=== PATIENT | male | born 1930 | race Caucasian/White ===

== ENCOUNTER 2017-06-16 08:30 | Outpatient (RCR) | payer MEDICARE, BC ==
[~2017-06-16] VITALS: Ht 162.6 cm; Wt 74.4 kg
[2017-06-16] MEDS ORDERED: NS 500ML ONE (08:31)
[2017-06-16] MEDS ORDERED: Midazolam 2mg/2ml Inj ONE (08:31)
[2017-06-16] MEDS ORDERED: Methohexital Sodium Syr 100mg/10ml IVP ONE (08:31)
[2017-06-16] MEDS ORDERED: Succinylcholine 20mg/ml 10ml vial ONE (08:31)
[2017-06-16 10:04] VITALS: BP 155/62
[2017-06-16] MEDS ORDERED: Sodium Chloride 500ML 500 ML IV ONE (10:17)
[2017-06-16 10:20] VITALS: BP 176/44
[2017-06-16 10:25] VITALS: BP 168/47
[2017-06-16 10:30] VITALS: BP 155/44
[2017-06-16 10:35] VITALS: BP 157/56
[2017-06-16 13:05] VITALS: BP 155/62
[2017-06-18] MEDS ORDERED: NS 500ML ONE (06:00)
[2017-06-18] MEDS ORDERED: Methohexital Sodium Syr 100mg/10ml IVP ONE (06:00)
[2017-06-18] MEDS ORDERED: Midazolam 2mg/2ml Inj ONE (06:00)
[2017-06-18] MEDS ORDERED: Succinylcholine 20mg/ml 10ml vial ONE (06:00)
[2017-06-18 08:49] VITALS: BP 150/69
[2017-06-18 09:05] VITALS: BP 189/43
[2017-06-18] MEDS ORDERED: Sodium Chloride 500ML 500 ML IV ONE (09:05)
[2017-06-18 09:10] VITALS: BP 163/45
[2017-06-18 09:15] VITALS: BP 163/40
[2017-06-18 09:20] VITALS: BP 146/39
[2017-06-21] MEDS ORDERED: Succinylcholine 20mg/ml 10ml vial ONE (07:00)
[2017-06-21] MEDS ORDERED: Midazolam 2mg/2ml Inj ONE (07:00)
[2017-06-21] MEDS ORDERED: Methohexital Sodium Syr 100mg/10ml IVP ONE (07:00)
[2017-06-21] MEDS ORDERED: NS 500ML ONE (07:00)
[2017-06-21] MEDS ORDERED: Atropine Sulfate 0.4mg/ml inj IVP PRN (12:04)
[2017-06-21] MEDS ORDERED: Sodium Chloride 500ML 500 ML IV ONE (12:04)
[2017-06-21 12:05] VITALS: BP 184/46
[2017-06-21 12:10] VITALS: BP 145/47
[2017-06-21 12:15] VITALS: BP 158/47
[2017-06-21 12:20] VITALS: BP 157/48
[2017-06-21 12:25] VITALS: BP 157/46
[2017-06-21 12:30] VITALS: BP 158/48
[2017-06-23] MEDS ORDERED: Succinylcholine 20mg/ml 10ml vial ONE (07:00)
[2017-06-23] MEDS ORDERED: Midazolam 2mg/2ml Inj ONE (07:00)
[2017-06-23] MEDS ORDERED: Methohexital Sodium Syr 100mg/10ml IVP ONE (07:00)
[2017-06-23] MEDS ORDERED: NS 500ML ONE (07:00)
[2017-06-23 11:47] VITALS: BP 161/60
[2017-06-23] MEDS ORDERED: Atropine Sulfate 0.4mg/ml inj IVP PRN (12:08)
[2017-06-23] MEDS ORDERED: Sodium Chloride 500ML 500 ML IV ONE (12:08)
[2017-06-23 12:10] VITALS: BP 163/40
[2017-06-23 12:15] VITALS: BP 146/45
[2017-06-23 12:20] VITALS: BP 137/44
[2017-06-23 12:25] VITALS: BP 122/44
[2017-06-25] MEDS ORDERED: Midazolam 2mg/2ml Inj ONE (07:00)
[2017-06-25] MEDS ORDERED: NS 500ML ONE (07:00)
[2017-06-25] MEDS ORDERED: Succinylcholine 20mg/ml 10ml vial ONE (07:00)
[2017-06-25] MEDS ORDERED: Methohexital Sodium Syr 100mg/10ml IVP ONE (07:00)
[2017-06-25 08:35] VITALS: BP 182/70
[2017-06-25] MEDS ORDERED: Sodium Chloride 500ML 500 ML IV ONE (08:53)
[2017-06-25 08:55] VITALS: BP 180/44
[2017-06-25 09:00] VITALS: BP 157/48
[2017-06-25 09:05] VITALS: BP 158/46
[2017-06-25 09:10] VITALS: BP 148/50
[2017-06-28] MEDS ORDERED: NS 500ML ONE (07:00)
[2017-06-28] MEDS ORDERED: Methohexital Sodium Syr 100mg/10ml IVP ONE (07:00)
[2017-06-28] MEDS ORDERED: Midazolam 2mg/2ml Inj ONE (07:00)
[2017-06-28] MEDS ORDERED: Succinylcholine 20mg/ml 10ml vial ONE (07:00)
[2017-06-28 10:45] VITALS: BP 149/74
[2017-06-28] MEDS ORDERED: Sodium Chloride 500ML 500 ML IV ONE (11:03)
[2017-06-28 11:05] VITALS: BP 177/38
[2017-06-28 11:10] VITALS: BP 181/56
[2017-06-28 11:15] VITALS: BP 180/49
[2017-06-28 11:20] VITALS: BP 156/56
[2017-06-28 11:25] VITALS: BP 156/56
[2017-06-30] MEDS ORDERED: Midazolam 2mg/2ml Inj ONE (08:00)
[2017-06-30] MEDS ORDERED: Succinylcholine 20mg/ml 10ml vial ONE (08:00)
[2017-06-30] MEDS ORDERED: Methohexital Sodium Syr 100mg/10ml IVP ONE (08:00)
[2017-06-30] MEDS ORDERED: NS 500ML ONE (08:00)
[2017-06-30 10:35] VITALS: BP 149/57
[2017-06-30] MEDS ORDERED: Atropine Sulfate 0.4mg/ml inj IVP PRN (10:50)
[2017-06-30] MEDS ORDERED: Sodium Chloride 500ML 500 ML IV ONE (10:50)
[2017-06-30 10:58] VITALS: BP 178/31
[2017-06-30 11:03] VITALS: BP 169/54
[2017-06-30 11:08] VITALS: BP 168/70
[2017-06-30 11:13] VITALS: BP_SYST 162; BP_SYST 168; BP_DIAS 44; BP_DIAS 56
[2017-07-02] MEDS ORDERED: Methohexital Sodium Syr 100mg/10ml IVP ONE (08:00)
[2017-07-02] MEDS ORDERED: Midazolam 2mg/2ml Inj ONE (08:00)
[2017-07-02] MEDS ORDERED: NS 500ML ONE (08:00)
[2017-07-02] MEDS ORDERED: Succinylcholine 20mg/ml 10ml vial ONE (08:00)
[2017-07-02 09:47] VITALS: BP 160/60
[2017-07-02 10:00] VITALS: BP 173/70
[2017-07-02] MEDS ORDERED: Sodium Chloride 500ML 500 ML IV ONE (10:00)
[2017-07-02 10:05] VITALS: BP 183/56
[2017-07-02 10:10] VITALS: BP 183/56
[2017-07-02 10:15] VITALS: BP 136/78
[2017-07-02 10:20] VITALS: BP 104/28
== END 2017-07-08 | disposition home or self-care (01) ==
LOC: ECT 08:30
DX: F31.4 Bipolar disorder, current episode depressed, severe, without psychotic features (principal); Z95.1 Presence of aortocoronary bypass graft; I10 Essential (primary) hypertension; E78.00 Pure hypercholesterolemia, unspecified; I25.10 Atherosclerotic heart disease of native coronary artery without angina pectoris; G47.33 Obstructive sleep apnea (adult) (pediatric); Z95.2 Presence of prosthetic heart valve
CPT/HCPCS: 90870; J0330; J2250; J7040

== ENCOUNTER 2017-07-09 08:23 | Outpatient (RCR) | payer MEDICARE, BC ==
[~2017-07-09] VITALS: Ht 160 cm; Wt 74.4 kg
[2017-07-12] MEDS ORDERED: Succinylcholine 20mg/ml 10ml vial ONE (07:00)
[2017-07-12] MEDS ORDERED: Midazolam 2mg/2ml Inj ONE (07:00)
[2017-07-12] MEDS ORDERED: Methohexital Sodium Syr 100mg/10ml IVP ONE (07:00)
[2017-07-12] MEDS ORDERED: NS 500ML ONE (07:00)
[2017-07-12 09:22] VITALS: BP 163/67
[2017-07-12] MEDS ORDERED: Sodium Chloride 500ML 500 ML IV ONE (09:36)
[2017-07-12 09:40] VITALS: BP 183/51
[2017-07-12 09:45] VITALS: BP 175/60
[2017-07-12 09:50] VITALS: BP 162/50
[2017-07-12 09:55] VITALS: BP 160/48
[2017-07-19] MEDS ORDERED: Succinylcholine 20mg/ml 10ml vial ONE (06:30)
[2017-07-19] MEDS ORDERED: Midazolam 2mg/2ml Inj ONE (06:30)
[2017-07-19] MEDS ORDERED: Methohexital Sodium Syr 100mg/10ml IVP ONE (06:30)
[2017-07-19] MEDS ORDERED: NS 500ML ONE (06:30)
[2017-07-19 09:34] VITALS: BP 163/60
[2017-07-19] MEDS ORDERED: Atropine Sulfate 0.4mg/ml inj IVP PRN (09:53)
[2017-07-19] MEDS ORDERED: Sodium Chloride 500ML 500 ML IV ONE (09:53)
[2017-07-19 09:55] VITALS: BP 176/63
[2017-07-19 10:00] VITALS: BP 180/57
[2017-07-19 10:05] VITALS: BP 188/65
[2017-07-19 10:10] VITALS: BP 192/58
[2017-07-19 10:15] VITALS: BP 171/63
[2017-08-02] MEDS ORDERED: Methohexital Sodium Syr 100mg/10ml IVP ONE (07:00)
[2017-08-02] MEDS ORDERED: Midazolam 2mg/2ml Inj ONE (07:00)
[2017-08-02] MEDS ORDERED: NS 500ML ONE (07:00)
[2017-08-02] MEDS ORDERED: Succinylcholine 20mg/ml 10ml vial ONE (07:00)
[2017-08-02 08:35] VITALS: BP 168/64
[2017-08-02] MEDS ORDERED: Sodium Chloride 500ML 500 ML IV ONE (08:49)
[2017-08-02 08:50] VITALS: BP 171/62
[2017-08-02 08:55] VITALS: BP 185/45
[2017-08-02 09:00] VITALS: BP 186/63
[2017-08-02 09:05] VITALS: BP 187/50
== END 2017-08-07 | disposition home or self-care (01) ==
LOC: ECT 08:23
DX: F31.4 Bipolar disorder, current episode depressed, severe, without psychotic features (principal)
CPT/HCPCS: 90870; J0330; J2250; J7040

== ENCOUNTER 2017-08-23 05:58 | Outpatient (RCR) | payer MEDICARE, BC ==
[~2017-08-23] VITALS: Ht 33 cm; Wt 0.5 kg
[2017-08-23] MEDS ORDERED: Midazolam 2mg/2ml Inj ONE (05:59)
[2017-08-23] MEDS ORDERED: Succinylcholine 20mg/ml 10ml vial ONE (05:59)
[2017-08-23] MEDS ORDERED: NS 500ML ONE (05:59)
[2017-08-23] MEDS ORDERED: Methohexital Sodium Syr 100mg/10ml IVP ONE (05:59)
[2017-08-23 08:16] VITALS: BP 175/57
[2017-08-23] MEDS ORDERED: Sodium Chloride 500ML 500 ML IV ONE (08:27)
[2017-08-23 08:30] VITALS: BP 167/43
[2017-08-23 08:35] VITALS: BP 170/40
[2017-08-23 08:40] VITALS: BP 160/40
[2017-08-23 08:45] VITALS: BP 169/41
== END 2017-09-07 | disposition home or self-care (01) ==
LOC: ECT 05:58
DX: F31.4 Bipolar disorder, current episode depressed, severe, without psychotic features (principal)
CPT/HCPCS: 90870; J0330; J2250; J7040

== ENCOUNTER 2017-09-20 05:46 | Outpatient (RCR) | payer MEDICARE, BC ==
[~2017-09-20] VITALS: Ht 30.5 cm; Wt 0.5 kg
[2017-09-20] MEDS ORDERED: Succinylcholine 20mg/ml 10ml vial ONE (05:47)
[2017-09-20] MEDS ORDERED: Midazolam 2mg/2ml Inj ONE (05:47)
[2017-09-20] MEDS ORDERED: Methohexital Sodium Syr 100mg/10ml IVP ONE (05:47)
[2017-09-20] MEDS ORDERED: NS 500ML ONE (05:47)
[2017-09-20 08:32] VITALS: BP 167/59
[2017-09-20] MEDS ORDERED: Sodium Chloride 500ML 500 ML IV ONE (08:41)
[2017-09-20 08:45] VITALS: BP 206/51
[2017-09-20 08:50] VITALS: BP 165/45
[2017-09-20 08:55] VITALS: BP 169/45
[2017-09-20 09:00] VITALS: BP 164/81
== END 2017-10-08 | disposition home or self-care (01) ==
LOC: ECT 05:46
DX: F31.4 Bipolar disorder, current episode depressed, severe, without psychotic features (principal)
CPT/HCPCS: 90870; J0330; J2250; J7040

== ENCOUNTER 2017-10-20 04:52 | Outpatient (RCR) | payer MEDICARE, BC ==
[~2017-10-20] VITALS: Ht 30.5 cm; Wt 0.5 kg
[2017-10-20] MEDS ORDERED: Methohexital Sodium Syr 100mg/10ml IVP ONE (04:53)
[2017-10-20] MEDS ORDERED: Succinylcholine 20mg/ml 10ml vial ONE (04:53)
[2017-10-20] MEDS ORDERED: NS 500ML ONE (04:53)
[2017-10-20] MEDS ORDERED: Midazolam 2mg/2ml Inj ONE (04:53)
[2017-10-20 08:49] VITALS: BP 186/62
[2017-10-20] MEDS ORDERED: Sodium Chloride 500ML 500 ML IV ONE (09:02)
[2017-10-20 09:05] VITALS: BP 196/40
[2017-10-20 09:10] VITALS: BP 178/49
[2017-10-20 09:15] VITALS: BP 173/48
[2017-10-20 09:20] VITALS: BP 160/47
== END 2017-11-07 | disposition home or self-care (01) ==
LOC: ECT 04:52
DX: F31.4 Bipolar disorder, current episode depressed, severe, without psychotic features (principal)
CPT/HCPCS: 90870; J0330; J2250; J7040

== ENCOUNTER 2017-11-17 06:08 | Outpatient (RCR) | payer MEDICARE, BC ==
[~2017-11-17] VITALS: Ht 30.5 cm; Wt 0.5 kg
[2017-11-17] MEDS ORDERED: Methohexital Sodium Syr 100mg/10ml IVP ONE (06:09)
[2017-11-17] MEDS ORDERED: Succinylcholine 20mg/ml 10ml vial ONE (06:09)
[2017-11-17] MEDS ORDERED: Midazolam 2mg/2ml Inj ONE (06:09)
[2017-11-17] MEDS ORDERED: NS 500ML ONE (06:09)
[2017-11-17 09:02] VITALS: BP 183/66
[2017-11-17 09:20] VITALS: BP 195/51
[2017-11-17] MEDS ORDERED: Sodium Chloride 500ML 500 ML IV ONE (09:20)
[2017-11-17 09:25] VITALS: BP 178/54
[2017-11-17 09:30] VITALS: BP 170/47
== END 2017-12-08 | disposition home or self-care (01) ==
LOC: ECT 06:08
DX: F31.4 Bipolar disorder, current episode depressed, severe, without psychotic features (principal)
CPT/HCPCS: 90870; J0330; J2250; J7040

== ENCOUNTER 2017-12-15 04:57 | Outpatient (RCR) | payer MEDICARE, BC ==
[~2017-12-15] VITALS: Ht 160 cm; Wt 73.9 kg
[2017-12-15] MEDS ORDERED: NS 500ML ONE (04:58)
[2017-12-15] MEDS ORDERED: Midazolam 2mg/2ml Inj ONE (04:58)
[2017-12-15] MEDS ORDERED: Succinylcholine 20mg/ml 10ml vial ONE (04:58)
[2017-12-15] MEDS ORDERED: Methohexital Sodium Syr 100mg/10ml IVP ONE (04:58)
[2017-12-15 08:44] VITALS: BP 175/62
[2017-12-15] MEDS ORDERED: Sodium Chloride 500ML 500 ML IV ONE (08:55)
[2017-12-15 09:00] VITALS: BP 172/44
[2017-12-15 09:05] VITALS: BP 172/54
[2017-12-15 09:10] VITALS: BP 183/41
[2017-12-15 09:15] VITALS: BP 168/48
== END 2018-01-07 | disposition home or self-care (01) ==
LOC: ECT 04:57
DX: F31.4 Bipolar disorder, current episode depressed, severe, without psychotic features (principal)
CPT/HCPCS: 90870; J0330; J2250; J7040

== ENCOUNTER 2018-01-12 04:43 | Outpatient (RCR) | payer MEDICARE, BC ==
[~2018-01-12] VITALS: Ht 160 cm; Wt 74.4 kg
[2018-01-12] MEDS ORDERED: Midazolam 2mg/2ml Inj ONE (04:44)
[2018-01-12] MEDS ORDERED: NS 500ML ONE (04:44)
[2018-01-12] MEDS ORDERED: Methohexital Sodium Syr 100mg/10ml IVP ONE (04:44)
[2018-01-12] MEDS ORDERED: Succinylcholine 20mg/ml 10ml vial ONE (04:44)
[2018-01-12 08:22] VITALS: BP 167/58
[2018-01-12 08:45] VITALS: BP_SYST 172; BP_SYST 181; BP_DIAS 49; BP_DIAS 52
[2018-01-12 08:50] VITALS: BP 164/59
[2018-01-12 08:55] VITALS: BP 165/43
[2018-01-12] MEDS ORDERED: Sodium Chloride 500ML 500 ML IV ONE (14:45)
[2018-01-28] MEDS ORDERED: Midazolam 2mg/2ml Inj ONE (06:00)
[2018-01-28] MEDS ORDERED: NS 500ML ONE (06:00)
[2018-01-28] MEDS ORDERED: Succinylcholine 20mg/ml 10ml vial ONE (06:00)
[2018-01-28] MEDS ORDERED: Methohexital Sodium Syr 100mg/10ml IVP ONE (06:00)
[2018-01-28 09:23] VITALS: BP 180/72
[2018-01-28] MEDS ORDERED: Sodium Chloride 500ML 500 ML IV ONE (09:34)
[2018-01-28 09:35] VITALS: BP 172/39
[2018-01-28 09:40] VITALS: BP 169/63
[2018-01-28 09:45] VITALS: BP 183/52
[2018-01-28 09:50] VITALS: BP 191/58
[2018-01-31] MEDS ORDERED: Succinylcholine 20mg/ml 10ml vial ONE (06:00)
[2018-01-31] MEDS ORDERED: Midazolam 2mg/2ml Inj ONE (06:00)
[2018-01-31] MEDS ORDERED: NS 500ML ONE (06:00)
[2018-01-31] MEDS ORDERED: Methohexital Sodium Syr 100mg/10ml IVP ONE (06:00)
[2018-01-31 07:32] VITALS: BP 167/57
[2018-01-31] MEDS ORDERED: Sodium Chloride 500ML 500 ML IV ONE (07:46)
[2018-01-31 07:50] VITALS: BP 178/57
[2018-01-31 07:55] VITALS: BP 174/55
[2018-01-31 08:00] VITALS: BP 160/55
[2018-01-31 08:05] VITALS: BP 155/43
[2018-02-04] MEDS ORDERED: Midazolam 2mg/2ml Inj ONE (06:00)
[2018-02-04] MEDS ORDERED: Methohexital Sodium Syr 100mg/10ml IVP ONE (06:00)
[2018-02-04] MEDS ORDERED: NS 500ML ONE (06:00)
[2018-02-04] MEDS ORDERED: Succinylcholine 20mg/ml 10ml vial ONE (06:00)
[2018-02-04 07:59] VITALS: BP 189/80
[2018-02-04] MEDS ORDERED: Sodium Chloride 500ML 500 ML IV ONE (08:12)
[2018-02-04 08:15] VITALS: BP 218/60
[2018-02-04 08:20] VITALS: BP 184/55
[2018-02-04 08:25] VITALS: BP 171/84
[2018-02-04 08:30] VITALS: BP 186/34
== END 2018-02-07 | disposition home or self-care (01) ==
LOC: ECT 04:43
DX: F31.4 Bipolar disorder, current episode depressed, severe, without psychotic features (principal)
CPT/HCPCS: 90870; J0330; J2250; J7040

== ENCOUNTER 2018-02-09 05:44 | Outpatient (RCR) | payer MEDICARE, BC ==
[~2018-02-09] VITALS: Ht 160 cm; Wt 74.4 kg
[2018-02-09] MEDS ORDERED: Methohexital Sodium Syr 100mg/10ml IVP ONE ×2 (05:45)
[2018-02-09] MEDS ORDERED: Succinylcholine 20mg/ml 10ml vial ONE ×2 (05:45)
[2018-02-09] MEDS ORDERED: NS 500ML ONE ×2 (05:45)
[2018-02-09] MEDS ORDERED: Midazolam 2mg/2ml Inj ONE ×2 (05:45)
[2018-02-09 07:49] VITALS: BP 197/85
[2018-02-09 08:00] VITALS: BP 194/60
[2018-02-09 08:05] VITALS: BP 165/70
[2018-02-09 08:10] VITALS: BP 201/58
[2018-02-09 08:15] VITALS: BP 197/59
[2018-02-18] MEDS ORDERED: Midazolam 2mg/2ml Inj ONE (08:00)
[2018-02-18] MEDS ORDERED: Succinylcholine 20mg/ml 10ml vial ONE (08:00)
[2018-02-18] MEDS ORDERED: NS 500ML ONE (08:00)
[2018-02-18] MEDS ORDERED: Methohexital Sodium Syr 100mg/10ml IVP ONE (08:00)
[2018-02-18 10:04] VITALS: BP 181/61
[2018-02-18 10:20] VITALS: BP 170/70
[2018-02-18 10:25] VITALS: BP 183/61
[2018-02-18 10:30] VITALS: BP 190/60
[2018-02-18 10:35] VITALS: BP 172/52
[2018-02-28] MEDS ORDERED: NS 500ML ONE (08:00)
[2018-02-28] MEDS ORDERED: Succinylcholine 20mg/ml 10ml vial ONE (08:00)
[2018-02-28] MEDS ORDERED: Midazolam 2mg/2ml Inj ONE (08:00)
[2018-02-28] MEDS ORDERED: Methohexital Sodium Syr 100mg/10ml IVP ONE (08:00)
[2018-02-28 08:48] VITALS: BP 153/61
[2018-02-28 09:05] VITALS: BP 185/61
[2018-02-28 09:10] VITALS: BP 166/61
[2018-02-28 09:15] VITALS: BP 166/62
[2018-02-28 09:20] VITALS: BP 172/55
[2018-03-04 08:40] VITALS: BP 164/67
[2018-03-04 08:50] VITALS: BP 215/66
[2018-03-04 08:55] VITALS: BP 169/68
[2018-03-04 09:00] VITALS: BP 162/11
[2018-03-04 09:05] VITALS: BP 173/56
[2018-03-09 08:39] VITALS: BP 159/62
[2018-03-09 08:55] VITALS: BP 195/51
[2018-03-09 09:00] VITALS: BP 183/58
[2018-03-09 09:05] VITALS: BP 180/60
[2018-03-09 09:10] VITALS: BP 174/57
[2018-03-09] MEDS ORDERED: Succinylcholine 20mg/ml 10ml vial ONE (10:00)
[2018-03-09] MEDS ORDERED: Midazolam 2mg/2ml Inj ONE (10:00)
[2018-03-09] MEDS ORDERED: NS 500ML ONE (10:00)
[2018-03-09] MEDS ORDERED: Methohexital Sodium Syr 100mg/10ml IVP ONE (10:00)
== END 2018-03-10 | disposition home or self-care (01) ==
LOC: ECT 05:44
DX: F31.4 Bipolar disorder, current episode depressed, severe, without psychotic features (principal); Z95.1 Presence of aortocoronary bypass graft; Z95.2 Presence of prosthetic heart valve; I10 Essential (primary) hypertension; E78.00 Pure hypercholesterolemia, unspecified; I25.10 Atherosclerotic heart disease of native coronary artery without angina pectoris; H54.8 Legal blindness, as defined in USA; G47.33 Obstructive sleep apnea (adult) (pediatric)
CPT/HCPCS: 90870; J0330; J2250; J7040

== ENCOUNTER 2018-03-21 05:06 | Outpatient (RCR) | payer MEDICARE, BC ==
[~2018-03-21] VITALS: Ht 160 cm; Wt 73.9 kg
[2018-03-21] MEDS ORDERED: Midazolam 2mg/2ml Inj ONE (05:07)
[2018-03-21] MEDS ORDERED: Methohexital Sodium Syr 100mg/10ml IVP ONE (05:07)
[2018-03-21] MEDS ORDERED: Succinylcholine 20mg/ml 10ml vial ONE (05:07)
[2018-03-21] MEDS ORDERED: NS 500ML ONE (05:07)
[2018-03-21 09:31] VITALS: BP 150/69
[2018-03-21 09:50] VITALS: BP 175/68
[2018-03-21 09:55] VITALS: BP 161/63
[2018-03-21 10:00] VITALS: BP 154/60
[2018-03-21 10:05] VITALS: BP 170/61
[2018-04-04] MEDS ORDERED: Midazolam 2mg/2ml Inj ONE (07:00)
[2018-04-04] MEDS ORDERED: Methohexital Sodium Syr 100mg/10ml IVP ONE (07:00)
[2018-04-04] MEDS ORDERED: Succinylcholine 20mg/ml 10ml vial ONE (07:00)
[2018-04-04] MEDS ORDERED: NS 500ML ONE (07:00)
[2018-04-04 09:12] VITALS: BP 190/66
[2018-04-04 09:30] VITALS: BP 195/62
[2018-04-04 09:35] VITALS: BP 182/57
[2018-04-04 09:40] VITALS: BP 177/56
[2018-04-04 09:45] VITALS: BP 169/50
== END 2018-04-07 | disposition home or self-care (01) ==
LOC: ECT 05:06
DX: F31.4 Bipolar disorder, current episode depressed, severe, without psychotic features (principal)
CPT/HCPCS: 90870; J0330; J2250; J7040

== ENCOUNTER 2018-04-25 05:56 | Outpatient (RCR) | payer MEDICARE, BC ==
[~2018-04-25] VITALS: Ht 160 cm; Wt 73.9 kg
[2018-04-25] MEDS ORDERED: NS 500ML ONE (05:57)
[2018-04-25] MEDS ORDERED: Methohexital Sodium Syr 100mg/10ml IVP ONE (05:57)
[2018-04-25] MEDS ORDERED: Succinylcholine 20mg/ml 10ml vial ONE (05:57)
[2018-04-25] MEDS ORDERED: Midazolam 2mg/2ml Inj ONE (05:57)
[2018-04-25 09:30] VITALS: BP 157/64
[2018-04-25 09:40] VITALS: BP 177/53
[2018-04-25 09:45] VITALS: BP 181/48
[2018-04-25 09:50] VITALS: BP 173/50
[2018-04-25 09:55] VITALS: BP 168/62
[2018-04-25 10:00] VITALS: BP 177/46
== END 2018-05-08 | disposition home or self-care (01) ==
LOC: ECT 05:56
DX: F31.4 Bipolar disorder, current episode depressed, severe, without psychotic features (principal)
CPT/HCPCS: 90870; J0330; J2250; J7040

== ENCOUNTER 2018-05-18 05:09 | Outpatient (RCR) | payer MEDICARE, BC ==
[~2018-05-18] VITALS: Ht 160 cm; Wt 73.9 kg
[2018-05-18] MEDS ORDERED: NS 500ML ONE (05:10)
[2018-05-18] MEDS ORDERED: Midazolam 2mg/2ml Inj ONE (05:10)
[2018-05-18] MEDS ORDERED: Methohexital Sodium Syr 100mg/10ml IVP ONE (05:10)
[2018-05-18] MEDS ORDERED: Succinylcholine 20mg/ml 10ml vial ONE (05:10)
[2018-05-18 09:01] VITALS: BP 180/63
[2018-05-18 09:20] VITALS: BP 181/49
[2018-05-18 09:25] VITALS: BP 184/57
[2018-05-18 09:30] VITALS: BP 186/36
[2018-05-18 09:35] VITALS: BP 189/44
[2018-05-25] MEDS ORDERED: Midazolam 2mg/2ml Inj ONE (07:00)
[2018-05-25] MEDS ORDERED: Methohexital Sodium Syr 100mg/10ml IVP ONE (07:00)
[2018-05-25] MEDS ORDERED: Succinylcholine 20mg/ml 10ml vial ONE (07:00)
[2018-05-25] MEDS ORDERED: NS 500ML ONE (07:00)
[2018-05-25 08:54] VITALS: BP 149/63
[2018-05-25 09:10] VITALS: BP 185/57
[2018-05-25 09:15] VITALS: BP 184/39
[2018-05-25 09:20] VITALS: BP 190/23
[2018-05-25 09:25] VITALS: BP 195/41
[2018-06-01] MEDS ORDERED: Midazolam 2mg/2ml Inj ONE (09:00)
[2018-06-01] MEDS ORDERED: NS 500ML ONE (09:00)
[2018-06-01] MEDS ORDERED: Succinylcholine 20mg/ml 10ml vial ONE (09:00)
[2018-06-01] MEDS ORDERED: Methohexital Sodium Syr 100mg/10ml IVP ONE (09:00)
[2018-06-01 10:21] VITALS: BP 161/72
[2018-06-01 10:35] VITALS: BP 196/56
[2018-06-01 10:40] VITALS: BP 163/49
[2018-06-01 10:45] VITALS: BP 181/44
[2018-06-01 10:50] VITALS: BP 165/49
[2018-06-06] MEDS ORDERED: Methohexital Sodium Syr 100mg/10ml IVP ONE (08:00)
[2018-06-06] MEDS ORDERED: Succinylcholine 20mg/ml 10ml vial ONE (08:00)
[2018-06-06] MEDS ORDERED: NS 500ML ONE (08:00)
[2018-06-06] MEDS ORDERED: Midazolam 2mg/2ml Inj ONE (08:00)
[2018-06-06 09:15] VITALS: BP 170/69
[2018-06-06 09:30] VITALS: BP 189/45
[2018-06-06 09:35] VITALS: BP 192/55
[2018-06-06 09:40] VITALS: BP 183/74
[2018-06-06 09:45] VITALS: BP 182/50
== END 2018-06-07 | disposition home or self-care (01) ==
LOC: ECT 05:09
DX: F31.4 Bipolar disorder, current episode depressed, severe, without psychotic features (principal)
CPT/HCPCS: 90870; J0330; J2250; J7040

== ENCOUNTER 2018-06-10 04:36 | Outpatient (RCR) | payer MEDICARE, BC ==
[~2018-06-10] VITALS: Ht 30.5 cm; Wt 0.5 kg
[2018-06-10] MEDS ORDERED: Midazolam 2mg/2ml Inj ONE (04:37)
[2018-06-10] MEDS ORDERED: Methohexital Sodium Syr 100mg/10ml IVP ONE (04:37)
[2018-06-10] MEDS ORDERED: Succinylcholine 20mg/ml 10ml vial ONE (04:37)
[2018-06-10] MEDS ORDERED: NS 500ML ONE (04:37)
[2018-06-10 08:06] VITALS: BP 149/59
[2018-06-10 08:20] VITALS: BP 161/101
[2018-06-10 08:25] VITALS: BP 169/68
[2018-06-10 08:30] VITALS: BP 151/73
[2018-06-10 08:35] VITALS: BP 162/47
== END 2018-07-08 | disposition home or self-care (01) ==
LOC: ECT 04:36
DX: F31.4 Bipolar disorder, current episode depressed, severe, without psychotic features (principal)
CPT/HCPCS: 90870; J0330; J2250; J7040

== ENCOUNTER 2018-09-28 05:58 | Outpatient (RCR) | payer MEDICARE, BC ==
[~2018-09-28] VITALS: Ht 160 cm; Wt 74.4 kg
[2018-09-28] MEDS ORDERED: NS 500ML ONE ×2 (05:59)
[2018-09-28] MEDS ORDERED: Succinylcholine 20mg/ml 10ml vial ONE ×2 (05:59)
[2018-09-28] MEDS ORDERED: Methohexital Sodium Syr 100mg/10ml IVP ONE ×2 (05:59)
[2018-09-28] MEDS ORDERED: Midazolam 2mg/2ml Inj ONE ×2 (05:59)
[2018-09-28 10:23] VITALS: BP 134/57
[2018-09-28 10:40] VITALS: BP 186/50
[2018-09-28 10:45] VITALS: BP 203/60
[2018-09-28 10:50] VITALS: BP 191/54
[2018-09-28 10:55] VITALS: BP 169/60
[2018-09-30] MEDS ORDERED: Methohexital Sodium Syr 100mg/10ml IVP ONE (08:00)
[2018-09-30] MEDS ORDERED: Succinylcholine 20mg/ml 10ml vial ONE (08:00)
[2018-09-30] MEDS ORDERED: NS 500ML ONE (08:00)
[2018-09-30] MEDS ORDERED: Midazolam 2mg/2ml Inj ONE (08:00)
[2018-09-30 10:15] VITALS: BP 166/67
[2018-09-30 10:30] VITALS: BP 194/67
[2018-09-30 10:35] VITALS: BP 190/94
[2018-09-30 10:40] VITALS: BP 181/64
[2018-09-30 10:45] VITALS: BP 182/58
[2018-10-03] MEDS ORDERED: Atropine Sulfate 0.4mg/ml inj IVP PRN ×2 (10:14→10:44)
[2018-10-03 10:23] VITALS: BP 174/69
[2018-10-03 10:45] VITALS: BP 187/68
[2018-10-03 10:50] VITALS: BP 167/61
[2018-10-03 10:55] VITALS: BP 184/64
[2018-10-03 11:00] VITALS: BP 180/79
[2018-10-07] MEDS ORDERED: Succinylcholine 20mg/ml 10ml vial ONE (06:00)
[2018-10-07] MEDS ORDERED: Methohexital Sodium Syr 100mg/10ml IVP ONE (06:00)
[2018-10-07] MEDS ORDERED: NS 500ML ONE (06:00)
[2018-10-07] MEDS ORDERED: Midazolam 2mg/2ml Inj ONE (06:00)
[2018-10-07 10:09] VITALS: BP 167/63
[2018-10-07 10:25] VITALS: BP 197/65
[2018-10-07 10:30] VITALS: BP 192/59
[2018-10-07 10:35] VITALS: BP 185/64
[2018-10-07 10:40] VITALS: BP 181/63
== END 2018-10-08 | disposition home or self-care (01) ==
LOC: ECT 05:58
DX: F31.4 Bipolar disorder, current episode depressed, severe, without psychotic features (principal)
CPT/HCPCS: 90870; J0330; J2250; J7040

== ENCOUNTER 2018-10-12 11:24 | Outpatient (RCR) | payer MEDICARE, BC ==
[~2018-10-12] VITALS: Ht 160 cm; Wt 74.4 kg
[2018-10-12 11:19] VITALS: BP 150/68
[~2018-10-12 11:24] MED LIST: Methohexital Sodium Syr 100mg/10ml IVP ONE; Midazolam 2mg/2ml Inj ONE; NS 500ML ONE; Succinylcholine 20mg/ml 10ml vial ONE
[2018-10-12 11:35] VITALS: BP 198/52
[2018-10-12 11:40] VITALS: BP 184/54
[2018-10-12 11:45] VITALS: BP 189/49
[2018-10-12 11:50] VITALS: BP 143/59
[2018-10-17] MEDS ORDERED: Succinylcholine 20mg/ml 10ml vial ONE (06:00)
[2018-10-17] MEDS ORDERED: Midazolam 2mg/2ml Inj ONE (06:00)
[2018-10-17] MEDS ORDERED: Methohexital Sodium Syr 100mg/10ml IVP ONE (06:00)
[2018-10-17] MEDS ORDERED: NS 500ML ONE (06:00)
[2018-10-17 09:58] VITALS: BP 192/71
[2018-10-17 10:10] VITALS: BP 199/60
[2018-10-17 10:15] VITALS: BP 209/85
[2018-10-17 10:20] VITALS: BP 173/58
[2018-10-17 10:25] VITALS: BP 176/60
[2018-10-24] MEDS ORDERED: Methohexital Sodium Syr 100mg/10ml IVP ONE (06:00)
[2018-10-24] MEDS ORDERED: NS 500ML ONE (06:00)
[2018-10-24] MEDS ORDERED: Succinylcholine 20mg/ml 10ml vial ONE (06:00)
[2018-10-24] MEDS ORDERED: Midazolam 2mg/2ml Inj ONE (06:00)
[2018-10-24 09:56] VITALS: BP 166/64
[2018-10-24 10:10] VITALS: BP 231/68
[2018-10-24 10:15] VITALS: BP 218/60
[2018-10-24 10:20] VITALS: BP 189/41
[2018-10-24 10:25] VITALS: BP 190/55
[2018-11-02] MEDS ORDERED: Succinylcholine 20mg/ml 10ml vial ONE (06:00)
[2018-11-02] MEDS ORDERED: NS 500ML ONE (06:00)
[2018-11-02] MEDS ORDERED: Methohexital Sodium Syr 100mg/10ml IVP ONE (06:00)
[2018-11-02] MEDS ORDERED: Midazolam 2mg/2ml Inj ONE (06:00)
[2018-11-02 09:47] VITALS: BP 156/61
[2018-11-02 09:59] VITALS: BP 188/45
[2018-11-02 10:04] VITALS: BP 187/55
[2018-11-02 10:09] VITALS: BP 184/77
[2018-11-02 10:14] VITALS: BP 180/60
== END 2018-11-07 | disposition home or self-care (01) ==
LOC: ECT 11:24
DX: F31.4 Bipolar disorder, current episode depressed, severe, without psychotic features (principal)
CPT/HCPCS: 90870; J0330; J2250; J7040

== ENCOUNTER 2018-11-14 09:17 | Outpatient (RCR) | payer MEDICARE, BC ==
[~2018-11-14] VITALS: Ht 160 cm; Wt 74.4 kg
[2018-11-14] MEDS ORDERED: Methohexital Sodium Syr 100mg/10ml IVP ONE (09:18)
[2018-11-14] MEDS ORDERED: Succinylcholine 20mg/ml 10ml vial ONE (09:18)
[2018-11-14] MEDS ORDERED: NS 500ML ONE (09:18)
[2018-11-14 10:34] VITALS: BP 169/62
[2018-11-14 10:50] VITALS: BP 198/50
[2018-11-14 10:55] VITALS: BP 186/56
[2018-11-14 11:00] VITALS: BP 167/50
[2018-11-14 11:05] VITALS: BP 169/50
[2018-11-30] MEDS ORDERED: Midazolam 2mg/2ml Inj ONE (06:00)
[2018-11-30] MEDS ORDERED: Methohexital Sodium Syr 100mg/10ml IVP ONE (06:00)
[2018-11-30] MEDS ORDERED: NS 500ML ONE (06:00)
[2018-11-30] MEDS ORDERED: Succinylcholine 20mg/ml 10ml vial ONE (06:00)
[2018-11-30 09:38] VITALS: BP 181/68
[2018-11-30 09:50] VITALS: BP 201/38
[2018-11-30 09:55] VITALS: BP 186/34
[2018-11-30 10:00] VITALS: BP 173/40
[2018-11-30 10:05] VITALS: BP 167/30
== END 2018-12-08 | disposition home or self-care (01) ==
LOC: ECT 09:17
DX: F31.4 Bipolar disorder, current episode depressed, severe, without psychotic features (principal)
CPT/HCPCS: 90870; J0330; J2250; J7040